=== PATIENT | female | born 1965 | race Caucasian/White ===

== ENCOUNTER 2017-02-09 22:01 | Emergency (ER) | payer BC ==
--- NOTE | 2017-02-09 23:41 | RAD ---
PROCEDURE CT head and cervical spine without contrast. HISTORY Fall, left-sided neck pain, previous neck surgery and skull decompression surgery TECHNIQUE Noncontrast CT imaging was performed of the head and cervical spine. Multiplanar reconstruction images of the cervical spine are submitted. Exposure: One or more of the following individualized dose reduction techniques were utilized for this exam: 1. Automated exposure control. 2. Adjustment of the mA and/or kV according to patient size. 3. Use of iterative reconstruction technique. COMPARISON None FINDINGS Head: No acute intracranial hemorrhage is identified. There has been suboccipital craniectomy. There is no intra-axial mass effect, midline shift, extra-axial fluid collection. No acute calvarial abnormality is identified. Mastoid air cells are aerated. There is moderate to severe ethmoid air cell mucosal thickening, minimally of the right frontal sinus. There are air-fluid levels of the maxillary sinuses bilaterally with adjacent mucosal thickening. There is moderate right sphenoid sinus mucosal thickening. Cervical spine: Cervical vertebral body stature and AP alignment are adequate. No acute cervical spine fracture is identified. Atlantoaxial distance is within normal limits. There is adequate alignment of the lateral masses of C1 relative to C2. Occipital condylar-C1 articulation is maintained. There is very mild levoscoliosis of the cervical spine. Partial absence of the posterior arch of C1 may be on a postsurgical basis. IMPRESSION 1. No acute intracranial abnormality is identified. 2. No acute cervical spine fracture is identified. 3. There are air-fluid levels of the maxillary sinuses bilaterally which could be seen with acute sinusitis. Electronically signed by: Umair Good MD (February 09, 2017 23:39:19)
[2017-02-10] VITALS: BP 155/91
--- NOTE | 2017-02-10 00:37 | PHYS DOC ---
Past Medical History Past Medical History: Hypertension Past Surgical History: Additional Past Surgical Histo: NECK SURGERY Alcohol Use: None Drug Use: None Adult General Chief Complaint Chief Complaint: MECHANICAL FALL HPI HPI Patient is a 51 year old female [place] to the ED by EMS [place]. The patient has a history that she had decompression surgery at the base of her skull and she has some chronic neck pain and also has been having pain in her left shoulder and arm. Tonight, she [place] and she fell onto her left side. She is complaining of pain in her head and neck, and pain and numbness down the left arm. She says this pain and numbness of the left arm is something she's been dealing with chronically, has been seeing her doctor, chiropractor, physical therapy lately. She is not really able to say whether she has any acute complaints or symptoms at this time. Patient's accompanied by family members who provide history as well. Review of Systems Review of Systems Constitutional: Denies fever or chills [] Eyes: Denies change in visual acuity, redness, or eye pain [] HENT: Denies nasal congestion or sore throat [] Respiratory: Denies cough or shortness of breath [] Cardiovascular: Denies chest pain GI: Denies abdominal pain, nausea, vomiting, bloody stools or diarrhea [] : Denies dysuria or hematuria [] Musculoskeletal: As in history of present illness Integument: Denies rash or skin lesions [] Allergies Allergies Allergies Coded Allergies Type Severity Reaction Last Updated Verified morphine Allergy Intermediate RASH 02/09/17 Yes Physical Exam Physical Exam Constitutional: Well developed, well nourished, no acute distress, non-toxic appearance. Alert, mentating normally. HENT: Normocephalic, atraumatic, bilateral external ears normal, nose normal. [ ] Eyes: conjunctiva normal, no discharge. [] Neck: Prehospital c-collar initially left in place Cardiovascular:Heart rate regular rhythm, no murmur [] Lungs & Thorax: Bilateral breath sounds clear to auscultation [] Abdomen: Bowel sounds normal, soft, no tenderness, no masses, no pulsatile masses. [] Skin: Warm, dry, no erythema, no rash. [] Extremities: Generalized tenderness of the left shoulder region without specific bony point tenderness, without deformity Neurologic: Alert and oriented X 3, normal motor function, normal sensory function, no focal deficits noted. [] Current Patient Data Vital Signs Vital Signs Date Time Temp Pulse Resp B/P (MAP) Pulse Ox O2 Delivery O2 Flow Rate FiO2 02/10/17 00:00 79 18 155/91 (112) 97 Room Air 02/09/17 22:07 98.6 98.6 EKG EKG [] Radiology/Procedures Radiology/Procedures CT scan of the head and cervical spine read by the radiologist. No acute findings. Three-view x-ray of the left shoulder read by me. No acute findings. [] Course & Med Decision Making Course & Med Decision Making Pertinent Labs and Imaging studies reviewed. (See chart for details) 51-year-old female presents after a fall and landing on her left side. CT scan of the head and cervical spine initially done, negative for acute findings. Patient was then up to the bathroom with assistance by ED nursing staff and did well. She was having pain of the left shoulder area, which she feels is likely nothing new but part of her chronic pain in that area, but I did order plain films read by me and negative for acute bony finding. I discussed with the patient and her family that she'll likely be more sore tomorrow, advised ice, follow-up with her providers that she already has in place for this left neck and shoulder/arm pain. Patient is stable for discharge with family members. [] Dragon Disclaimer Dragon Disclaimer This electronic medical record was generated, in whole or in part, using a voice recognition dictation system. Departure Departure Impression: Primary Impression: Fall from standing Additional Impression: Cervical strain, acute Disposition: 01 HOME, SELF-CARE Condition: STABLE Referrals: PRATIK ARCHER (PCP) Patient Instructions: Contusion, [id number] Additional Instructions: As we discussed, you will probably be more sore tomorrow. Ice to areas of pain 15-20 minutes out of every 1-2 hours. See your primary care physician and other physicians and providers for follow-up as planned. Problem Qualifiers DG ADAMSON MD February 10, 2017 00:37
--- NOTE | 2017-02-10 07:16 | RAD ---
Portable left shoulder, 3 views, 02/10/2017: History: Pain after a fall No fracture or dislocation is identified. There is mild spurring at the AC joint. There is mild subacromial spurring. IMPRESSION: No acute left shoulder abnormality is detected.
== END 2017-02-10 00:50 | disposition home or self-care (01) ==
LOC: ER 22:01
DX: S16.1XXA Strain of muscle, fascia and tendon at neck level, initial encounter (principal); R51 Headache; I10 Essential (primary) hypertension; R20.0 Anesthesia of skin; Z88.5 Allergy status to narcotic agent; W01.198A Fall on same level from slipping, tripping and stumbling with subsequent striking against other object, initial encounter; Y93.89 Activity, other specified; Y92.322 Soccer field as the place of occurrence of the external cause; Y99.8 Other external cause status
CPT/HCPCS: 70450; 72125; 73030; 99284-25